=== PATIENT | male | born 1930 | race Hispanic/Latino ===

== ENCOUNTER 2017-09-28 17:12 | Observation (INO) | payer MEDICARE, OTHER ==
--- NOTE | 2017-09-28 17:57 | ED PDOC ---
Arrival/HPI - General Time Seen by Provider: 09/28/17 17:25 Historian: Patient, Spouse - History of Present Illness Narrative History of Present Illness (Text): 09/28/17 17:54 87 y.o. male whose PMHx included HTN, afib, (on eliquis), seizures, PE with IVC filter who presents to the ED with complaint of right hand pain x [employer]. Patient stated his gait is unstable as baseline. He said he was walking towards a restaurant, and he felt his right leg "gave out" which caused him to fall. Patient fell on his right knee, and he was able to put his right hand down. Patient denies dizziness, syncope, sob, cp, dysarthria, diplopia, dysphagia, weaknes, paresthesias, fever, leg swelling, calf pain, n/v, or seizures. Denies head injury, or neck pain. Time/Duration: Prior to Arrival Context: Other (parking lot, local restaurant) Past Medical History - Provider Review Nursing Documentation Reviewed: Yes - Tetanus Immunization Tetanus Immunization: Unknown - Past Medical History Past Medical History: Non-Contributing - Cardiac Hx Hypertension: Yes - Pulmonary Hx Respiratory Disorders: Yes (pe/amy filter 2006) - Neurological Hx Seizures: Yes - HEENT Hx HEENT Disorder: Yes (wears eyeglasses) - Renal Hx Renal Disorder: No - Endocrine/Metabolic Hx Endocrine Disorders: No - Hematological/Oncological Hx Blood Disorders: Yes Hx Anemia: Yes - Integumentary Hx Dermatological Disorder: Yes (adult rosacea) Other/Comment: left ankle ulcer surrounded by red skin 2cm x 2cm - Musculoskeletal/Rheumatological Hx Arthritis: Yes - Gastrointestinal Hx Gastrointestinal Disorders: Yes (hx gi bleed) - Genitourinary/Gynecological Hx Reproductive Disorders: Yes - Psychiatric Hx Anxiety: Yes Hx Depression: Yes Hx Emotional Abuse: No Hx Physical Abuse: No Hx Substance Use: No - Surgical History Hx Cardiac Catheterization: Yes (05/20/14) Hx Cholecystectomy: Yes (2006) - Anesthesia Hx Anesthesia: Yes Hx Anesthesia Reactions: No Hx Malignant Hyperthermia: No - Suicidal Assessment Feels Threatened In Home Enviroment: No Family/Social History - Physician Review Nursing Documentation Reviewed: Yes Family/Social History: Other (noncontributory) Smoking Status: Never Smoked Hx Alcohol Use: No Hx Substance Use: No Hx Substance Use Treatment: No Allergies/Home Meds Allergies/Adverse Reactions: Allergies errythromycin Adverse Reaction (Uncoded 09/17/15 17:20) SWELLING Home Medications: Home Meds Medication Instructions Recorded Confirmed Ezetimibe [Zetia] 10 mg PO QPM 03/10/14 09/28/17 OXcarbazepine [Trileptal] 300 mg PO BID 03/10/14 09/28/17 Phenobarbital [PHENobarbital Tab] 32.4 mg PO HS 03/10/14 09/28/17 Tamsulosin [Flomax] 0.4 mg PO QPM 03/21/14 09/28/17 Atorvastatin [Lipitor] 20 mg PO DAILY 05/23/14 09/28/17 Amlodipine Besylate [Norvasc] 10 mg PO DAILY 09/17/15 09/28/17 Atenolol [Tenormin] 25 mg PO DAILY 09/17/15 09/28/17 Loratadine [Non-Drowsy Allergy] 10 mg PO DAILY 09/17/15 09/28/17 Multivitamin [Multi-Day Vitamins] 1 each PO DAILY 09/17/15 09/28/17 Review of Systems - Review of Systems Constitutional: Normal. absent: Fatigue, Weight Change, Fevers, Night Sweats Eyes: Normal ENT: Normal Respiratory: Normal Cardiovascular: Normal Gastrointestinal: Normal Genitourinary Male: Normal Musculoskeletal: Other (right anterior knee abrasion. right hand pain) Skin: Normal Neurological: Normal Endocrine: Normal Hemo/Lymphatic: Normal Psychiatric: Normal Physical Exam Vital Signs Temp Pulse Resp BP Pulse Ox 09/28/17 22:53 97.7 F 84 18 135/64 98 09/28/17 17:39 98.2 F 90 18 140/79 97 Temperature: Afebrile Blood Pressure: Normal Pulse: Regular Respiratory Rate: Normal Appearance: Positive for: Well-Appearing, Non-Toxic, Comfortable Pain Distress: None Mental Status: Positive for: Alert and Oriented X 3 - Systems Exam Head: Present: Atraumatic, Normocephalic, Other (no raccoon sign. no joseph sign) Pupils: Present: PERRL, Other (no hyphema) Extroacular Muscles: Present: EOMI. No: Entrapment Conjunctiva: Present: Normal Ears: Present: Normal, NORMAL TM, Normal Canal, Other (no hemotympanum). No: Erythema Mouth: Present: Moist Mucous Membranes Pharnyx: Present: Normal. No: ERYTHEMA, EXUDATE, TONSILS ENLARGED Neck: Present: Normal Range of Motion, Trachea Midline. No: Meningeal Signs, MIDLINE TENDERNESS, Paraspinal Tenderness, Lymphadenopathy Respiratory/Chest: Present: Clear to Auscultation, Good Air Exchange. No: Respiratory Distress, Accessory Muscle Use Cardiovascular: Present: Regular Rate and Rhythm, Normal S1, S2. No: Murmurs Abdomen: No: Tenderness, Distention, Peritoneal Signs Back: Present: Normal Inspection. No: CVA Tenderness Upper Extremity: Present: Normal Inspection, Normal ROM. No: Cyanosis, Edema Lower Extremity: Present: Normal Inspection, Normal ROM. No: Edema Neurological: Present: GCS=15, CN II-XII Intact, Speech Normal, Motor Func Grossly Intact, Normal Sensory Function, Memory Normal, Other (Normal speech. Patient had morb difficulty ambulating thn his baseline). No: Gait Normal ( unstable gait) Skin: Present: Warm, Dry, Normal Color. No: Rashes Psychiatric: Present: Alert, Oriented x 3, Normal Insight, Normal Concentration Medical Decision Making ED Course and Treatment: 09/28/17 18:00 Patient stated he had a mechanical fall. He denies sob, cp, dizziness, cms, diplopia, or dysarthria. NIH scale was zero at this time on revaluation,. 09/28/17 21:[address] Chapa regarding patient hx of fall. Patient has worsening of gait. He recommended Dr. Rhodes, cardiology, Dr. Coto, neurology consult. Pending CT head result. Dr. Chapa recommended Aspirin 81 mg PO, if CT brain is negative for bleed. 09/28/17 21:24 On revaluation. Patient feels well. NIH score still zero. Patient admits having unsteady gait for near 2 years. Patient is able to move all extremity. However, patient was not able to walk steady at this time in this ED visit. I recommended patient to stay in the hospital for observation. Patient agreed with the plan Re-evaluation Time: 21:16 Reassessment Condition: Re-examined, Improving,but remains with symptoms - Lab Interpretations Lab Results: Lab Results 09/28/17 20:12: Urine Color Yellow, Urine Appearance Clear, Urine pH 6.0, Ur Specific [place] 1.010, Urine Protein Negative, Urine Glucose (UA) Negative, Urine Ketones Negative, Urine Blood Negative, Urine Nitrate Negative, Urine Bilirubin Negative, Urine Urobilinogen 0.2, Ur Leukocyte Esterase Negative - RAD Interpretation Narrative RAD Interpretations (Text): 09/28/17 19:11 PROCEDURE: Right Knee Radiographs. HISTORY: pain s/p fall COMPARISON: None. FINDINGS: BONES: No acute fracture or destructive bony lesion identified. Diffuse osteopenia suggests osteoporosis. JOINTS: Degenerative changes are comprised of joint space narrowing and cortical sclerosis in all 3 compartments. Vascular calcifications are identified in the mid posterior thigh JOINT EFFUSION: None. OTHER FINDINGS: None. IMPRESSION: Degenerative joint disease. No acute fracture or dislocation appreciated. Diffuse osteopenia suggests osteoporosis. 09/29/17 00:43 FINDINGS: Brain: There are periventricular foci of hypodensity, likely representing small vessel ischemic disease in a patient this age. The acuity of the white matter disease is indeterminate. The white-chicas differentiation is preserved demonstrating no acute territorial type infarct. A few tiny dilated perivascular spaces are identified below the left basal ganglia. No acute intracranial hemorrhage is seen. There is a left parafalcine calcification or calcified meningioma measuring 0.9 x 0.5 cm. Midline shift: There is no midline shift. Ventricles: There is mild to moderate prominence of the ventricles and sulci, compatible with atrophy. Bones/joints: The calvarium demonstrates no evidence for a depressed fracture. Soft tissues: No acute abnormality. Vasculature: There is atherosclerotic calcification of the intracranial internal carotid arteries and distal vertebral arteries. Sinuses: Mucous retention cysts or polyps are visualized within the bilateral maxillary sinuses. There is opacification of a few left ethmoid air cells, with a small additional mucous retention cyst or polyp. Page 1 of 2 GABRIELLE SNOW | Final Radiology Report Mastoid air cells: No mastoid effusion. IMPRESSION: 1. No acute intracranial hemorrhage or acute territorial type infarct. 2. There are periventricular foci of hypodensity, likely representing small vessel ischemic disease in a patient this age. 3. Mild to moderate atrophy. 4. Paranasal sinus disease is noted above. 5. Additional CT findings described above Radiology Orders: 09/28/17 17:57 ANKLE RIGHT 3 VIEWS ROUTINE [RAD] Stat Hip Right [HIP MIN 2V W/ PELVIS RT] [RAD] Stat KNEE W PATELLA RIGHT 3 VIEW [RAD] Stat 09/28/17 20:08 HEAD W/O CONTRAST [CT] Stat 09/28/17 20:10 HAND RIGHT 3 VIEWS [RAD] Stat 09/28/17 20:15 CHEST ONE VIEW [RAD] Stat NIHSS Scale ([place]) Time Performed: 18:00 - How Severe is the Stoke Baseline Level of Consciousness: 0=Alert LOC to Questions: 0=Both comments correct LOC to commands: 0=Obeys both correctly Best Gaze: 0=Normal Visual: 0=No visual loss Facial: 0=Normal Motor Arm - Left: 0=No drift Motor Arm - Right: 0=No drift Motor Leg - Left: 0=No drift Motor Leg - Right: 0=No drift Limb Ataxia: 0=Absent Sensory: 0=Normal Best Language: 0=No aphasia Dysarthia: 0=Normal articulation Extinction & Inattention (Neglect): 0=Normal, no object Score: 0 Risk Level: No Stroke Risk Disposition/Present on Arrival - Present on Arrival Any Indicators Present on Arrival: No History of DVT/PE: No History of Uncontrolled Diabetes: No Urinary Catheter: No History Surgical Site Infection Following: None - Disposition Have Diagnosis and Disposition been Completed?: Yes Diagnosis: Unsteady gait, Near syncope Disposition: HOSPITALIZED Disposition Time: 21:27 Patient Plan: Admission Patient Problems: Current Active Problems Problem Status Onset Unsteady gait Acute Near syncope Acute Condition: STABLE
--- NOTE | 2017-09-28 19:03 | RAD ---
PROCEDURE: Right Knee Radiographs. HISTORY: pain s/p fall COMPARISON: None. FINDINGS: BONES: No acute fracture or destructive bony lesion identified. Diffuse osteopenia suggests osteoporosis. JOINTS: Degenerative changes are comprised of joint space narrowing and cortical sclerosis in all 3 compartments. Vascular calcifications are identified in the mid posterior thigh JOINT EFFUSION: None. OTHER FINDINGS: None. IMPRESSION: Degenerative joint disease. No acute fracture or dislocation appreciated. Diffuse osteopenia suggests osteoporosis.
[2017-09-28 20:17] LABS: URINE BILIRUBIN NEGATIVE (NEGATIVE); URINE BLOOD NEGATIVE (NEGATIVE); URINE GLUCOSE (UA) NEGATIVE (NEGATIVE); URINE LEUKOCYTE ESTERASE NEGATIVE Leu/uL (NEGATIVE); URINE PROTEIN NEGATIVE mg/dL (<30 mg/dL); URINE UROBILINOGEN 0.2 E.U./dL (<1 E.U./dL)
[2017-09-28 20:22] LABS: URINE APPEARANCE CLEAR (CLEAR); URINE COLOR YELLOW (YELLOW)
[2017-09-28 21:41] LABS: BASO # 0.01 K/mm3 (0.0-2.0); BASO % 0.1 % (0.0-3.0); EOS # 0.2 (0.0-0.7); EOS % 2.6 % (1.5-5.0); GRAN # 5.51 (1.4-6.5); HEMOGLOBIN 14.6 g/dL (14.0-18.0); LYMPH % 23.4 % (22.0-35.0); MEAN CELL VOLUME 89.7 fl (80.0-105.0); MEAN CORPUSCULAR HEMOGLOBIN 30.7 pg (25.0-35.0); MEAN CORPUSCULAR HGB CONC 34.3 g/dl (31.0-37.0); MEAN PLATELET VOLUME 9.6 fl (7.0-11.0); MONO # 0.8 (0.1-0.6); MONO % 8.9 % (1.0-6.0); RBC 4.75 10^6/uL (3.5-6.1); RED CELL DISTRIBUTION WIDTH 14.6 % (11.5-14.5); WHITE BLOOD COUNT 8.5 10^3/ul (4.5-11.0)
[2017-09-28 21:50] LABS: INR 1.25 (0.93-1.08); PARTIAL THROMBOPLASTIN TIME 33.3 Seconds (25.1-36.5); PROTHROMBIN TIME 14.3 SECONDS (9.4-12.5)
[2017-09-28 21:55] LABS: ALB/GLOB RATIO 1.4 (1.1-1.8); ALBUMIN 4.5 g/dL (3.0-4.8); ALT/SGPT 52 U/L (7-56); AST/SGOT 62 U/L (17-59); BLOOD UREA NITROGEN 26 mg/dL (7-21); CALCIUM 9.6 mg/dL (8.4-10.5); GFR AFRICAN-AMERICAN > 60; GFR NON-AFRICAN AMERICAN > 60
[2017-09-28 22:07] LABS: TROPONIN I 0.03 ng/mL
--- NOTE | 2017-09-29 00:33 | CT ---
EXAM: CT Head Without Intravenous Contrast EXAM DATE/TIME: 09/28/2017 8:08 PM CLINICAL HISTORY: The patient age is 87 years old and is male; Signs and symptoms; Dizziness; Patient HX: HX seizures in past according to pt Facility exam id and description: Ct heads head w/o contrast TECHNIQUE: Axial computed tomography images of the head/brain without intravenous contrast. All CT scans at this facility use one or more dose reduction techniques, viz.: automated exposure control; ma/kV adjustment per patient size (including targeted exams where dose is matched to indication; i.e. head); or iterative reconstruction technique. Coronal and sagittal reformatted images were created and reviewed. COMPARISON: No relevant prior studies available. FINDINGS: Brain: There are periventricular foci of hypodensity, likely representing small vessel ischemic disease in a patient this age. The acuity of the white matter disease is indeterminate. The white-chicas differentiation is preserved demonstrating no acute territorial type infarct. A few tiny dilated perivascular spaces are identified below the left basal ganglia. No acute intracranial hemorrhage is seen. There is a left parafalcine calcification or calcified meningioma measuring 0.9 x 0.5 cm. Midline shift: There is no midline shift. Ventricles: There is mild to moderate prominence of the ventricles and sulci, compatible with atrophy. Bones/joints: The calvarium demonstrates no evidence for a depressed fracture. Soft tissues: No acute abnormality. Vasculature: There is atherosclerotic calcification of the intracranial internal carotid arteries and distal vertebral arteries. Sinuses: Mucous retention cysts or polyps are visualized within the bilateral maxillary sinuses. There is opacification of a few left ethmoid air cells, with a small additional mucous retention cyst or polyp. Mastoid air cells: No mastoid effusion. IMPRESSION: 1. No acute intracranial hemorrhage or acute territorial type infarct. 2. There are periventricular foci of hypodensity, likely representing small vessel ischemic disease in a patient this age. 3. Mild to moderate atrophy. 4. Paranasal sinus disease is noted above. 5. Additional CT findings described above.
[2017-09-29 02:12] VITALS: BMI 23.6
[2017-09-29] MEDS: Multivitamin Therapeutic Tab PO SCH (09:35)
--- NOTE | 2017-09-29 10:04 | RAD ---
PROCEDURE: CHEST RADIOGRAPH, 1 VIEW HISTORY: admission COMPARISON: 09/17/2015 FINDINGS: LUNGS: Clear. PLEURA: No pneumothorax or pleural fluid seen. CARDIOVASCULAR: Mild cardiomegaly-similar.Atherosclerotic vascular calcifications present. . OSSEOUS STRUCTURES: Bilateral shoulder arthrosis. Thoracic spondylosis. VISUALIZED UPPER ABDOMEN: Normal. OTHER FINDINGS: None. IMPRESSION: No interval pathology noted.
--- NOTE | 2017-09-29 10:06 | RAD ---
PROCEDURE: Right Hand Radiographs. HISTORY: pain COMPARISON: None. FINDINGS: BONES: . No fracture. JOINTS: osteoarthritic changes. SOFT TISSUES: Normal. OTHER FINDINGS: Chondrocalcinosis triangular fibrocartilage complex area IMPRESSION: No fracture or lytic lesion. 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 Chondrocalcinosis
[2017-09-29] MEDS: Potassium Chloride 20 mEq ER Tab PO SCH (11:41)
--- NOTE | 2017-09-29 12:21 | CON ---
DATE: 09/29/2017 HISTORY OF PRESENT ILLNESS: This is an 87-year-old white male with past medical history of hypertension, atrial fibrillation, seizure and with IVC filter. The patient was walking on the sidewalk, lost the control on the right leg and fell and landed on the right hand. Did not hit his head. No loss of consciousness. Called to evaluate the patient. Past medical history of seizure, hypertension, AFib, IV filter and at bedside. REVIEW OF THE SYSTEMS: Ten-point review of systems was negative except fall. PHYSICAL EXAMINATION: VITAL SIGNS: Blood pressure 140/79. HEENT: Normocephalic, atraumatic. NECK: Supple. NEUROLOGIC: Awake, orientated to self and place. No aphasia. Cranial nerves II through XII were tested. Pupils reactive. EOM intact. Visual field full. No facial asymmetry. Tongue midline. No tracheal deviation. Spontaneous movement of the extremities noted. Deep tendon reflexes 1+. Both plantars downgoing. Sensory appears intact. Cerebellar gait normal. IMPRESSION: Status post fall, possibly secondary to uneven surface and also gait difficulty. CAT scan of the head was done, which was reported negative. MRI of the lumbosacral spine was ordered and physical therapy for gait training. Continue present management. We will follow up. Kolby Coto MD
--- NOTE | 2017-09-29 13:04 | RAD ---
PROCEDURE: Right Ankle Radiographs. HISTORY: pain s/p fall COMPARISON: None FINDINGS: BONES: Normal. No fracture. JOINTS: Normal. No osteoarthritis. Ankle mortise maintained. Talar dome intact SOFT TISSUES: Normal. OTHER FINDINGS: None. IMPRESSION: Normal right ankle radiographs.
--- NOTE | 2017-09-29 13:05 | RAD ---
PROCEDURE: Right Hip and pelvis Radiographs. HISTORY: pain s/p fall COMPARISON: None. FINDINGS: BONES: Normal. No fracture. JOINTS: Normal. SOFT TISSUES: Normal. OTHER FINDINGS: None. IMPRESSION: Normal radiographs of right hip.
--- NOTE | 2017-09-29 16:06 | CARD ---
APPROVED REPORT EXAM: Two-dimensional and M-mode echocardiogram with Doppler and color Doppler. INDICATION Atrial Fibrillation Cardiac Disease: CAD 2D DIMENSIONS Left Atrium (2D)4.7 (1.6-4.0cm)IVSd1.1 (0.7-1.1cm) LVDd4.0 (3.9-5.9cm)LVOT Diameter1.9 (1.8-2.4cm) PWd1.1 (0.7-1.1cm)LVDs2.6 (2.5-4.0cm) FS (%) 35.2 %LVEF (%)65.2 (>50%) M-Mode DIMENSIONS Aortic Root3.20 (2.2-3.7cm)Aortic Cusp Exc.1.10 (1.5-2.0cm) Aortic Valve AoV Peak Wmzkfoda171.0cm/sAoV VTI47.1cmAO Peak GR.31mmHg LVOT Peak Shtdazbf78.6cm/sLVOT VTI22.90cmAO Mean GR.14mmHg YINKA (VMAX)1.09dr3YNR (VTI)1.38cm2 Mitral Valve MV E Iowdxryh158.0cm/sMV A Bdeldsqf87.8cm/sE/A ratio2.1 TDI Lateral E' Peak V9.07cm/sMedial E' Peak V7.70cm/sE/Lateral E'12.5 E/Medial E'14.7 Pulmonary Valve PV Peak Gihjggaa179.0cm/sPV Peak Grad.5mmHg Tricuspid Valve TR Peak Wnnzbfjo889in/sRAP [id number] Peak Gr.58mmHg [id number] LEFT VENTRICLE The left ventricle is normal size. There is normal left ventricular wall thickness. The left ventricular function is normal.EF-65% There is normal LV segmental wall motion. Transmitral Doppler flow pattern is Grade II-pseudonormal filling dynamics. No left ventricle thrombus noted on this study. There is no ventricular septal defect visualized. There is no left ventricular aneurysm. There is no mass noted in the left ventricle. RIGHT VENTRICLE The right ventricle is normal size. There is normal right ventricular wall thickness. The right ventricular systolic function is normal. ATRIA The left atrium is mildly dilated. The right atrium size is normal. The interatrial septum is intact with no evidence for an atrial septal defect. AORTIC VALVE The aortic valve is calcified and displays decreased opening. The aortic valve is severely sclerotic. There is trace aortic regurgitation. There is mild to moderate valvular aortic stenosis. There is no aortic valvular vegetation. MITRAL VALVE The mitral valve is thickened but opens well. Mitral annular calcification is moderate. Mitral regurgitation is mild to moderate. There is no mitral valve stenosis. There is no evidence of mitral valve prolapse. TRICUSPID VALVE The tricuspid valve leaflets are thickened or calcified, but open well. There is mild to moderate tricuspid regurgitation.RVSP-68 mmof hg There is moderate pulmonary hypertension. There is no tricuspid valve stenosis. There is no tricuspid valve prolapse or vegetation. PULMONIC VALVE The pulmonary valve is normal in structure. There is trace to mild pulmonic valvular regurgitation. There is no pulmonic valvular stenosis. GREAT VESSELS The aortic root is normal in size. The ascending aorta is normal in size. The pulmonary artery is normal. The IVC is normal in size and collapses >50% with inspiration. PERICARDIAL EFFUSION There is no pleural effusion. There is no pericardial effusion. <Conclusion> The left ventricle is normal size. There is normal left ventricular wall thickness. The left ventricular function is normal.EF-65% There is trace aortic regurgitation. There is mild to moderate valvular aortic stenosis. Mitral regurgitation is mild to moderate. There is mild to moderate tricuspid regurgitation.RVSP-68 mmof hg There is moderate pulmonary hypertension. The IVC is normal in size and collapses >50% with inspiration. There is no pericardial effusion. No Vegetation or thrombus noted
--- NOTE | 2017-09-29 16:23 | MRI ---
PROCEDURE: MR LUMBAR SPINE WITHOUT CONTRAST HISTORY: gait difficulty COMPARISON: None available. TECHNIQUE: Multiecho multiplanar sequences were performed through the lumbar spine without the use of intravenous contrast. FINDINGS: Normal lumbar lordosis. Vertebral body heights are preserved. Marrow signal unremarkable. Conus medullaris unremarkable at the level of L1 There appears to be a transitional S1 segment with a small disc space between S1 and S2. This counting convention will be followed. T12-L1: No disc herniation, spinal canal stenosis or neural foraminal narrowing. L1-2: No disc herniation, spinal canal stenosis or neural foraminal narrowing. L2-3: No disc herniation, spinal canal stenosis or neural foraminal narrowing. L3-4: Mild disc bulge and ligamentum flavum hypertrophy. Mild central stenosis L4-5: Severe spinal stenosis secondary to disc bulging and severe ligamentum flavum hypertrophy. There is complete obliteration of the normal subarachnoid space L5-S1: Mild disc bulge. Facet arthropathy and severe ligamentum flavum hypertrophy with a severe degree of central canal stenosis OTHER FINDINGS: None. IMPRESSION: Transitional partially lumbarized S1 segment. Severe spinal stenosis at L4-5 and L5-S1
--- NOTE | 2017-09-29 17:03 | CARD ---
APPROVED REPORT EKG Measurement Heart [id number] <Conclusion> Normal sinus rhythm Normal ECG
[2017-09-29] MEDS ORDERED: PHENOBARBITAL 32.4 MG PO SCH (22:00)
--- NOTE | 2017-09-29 23:31 | CON ---
DATE: 09/29/2017 CARDIOLOGY CONSULTATION REASON FOR CONSULTATION: Cardiac evaluation, history of AFib/atrial flutter, coronary artery disease status post stent, admitted after a mechanical fall and unsteady gait. BRIEF CLINICAL HISTORY: This is an 87-year-old male with past medical history significant for coronary artery disease, status post stent 3 years ago; hypertension; atrial fibrillation/flutter, on Eliquis; seizure disorder; PE; IVC filter who presented, was going with and right leg gave out and fell down and bruised in the right hand palm and knee. Denies any chest pain. Denies any shortness of breath. Denies any palpitations. PAST MEDICAL HISTORY: Significant for seizure disorder, hypertension, hyperlipidemia, prostatic enlargement, spasm of the bladder, history of abnormal stress test with cardiac catheterization in 2014 and then subsequently underwent 3 drug-eluting stents to proximal, mid and distal LAD, history of atrial fibrillation, status post KYLAH cardioversion, failed cardioversion, since then the patient is on Eliquis that was in 2014. PAST SURGICAL HISTORY: Significant for cholecystectomy in the past, history of PE and the patient had IVC filter in the past, history of angioplasty on 05/22/2014, 3 stents to proximal, mid and distal LAD stents, history of KYLAH cardioversion in 2014. CURRENT MEDICATIONS: The patient is on Flomax, K-Dur, loratadine, Lasix, atorvastatin, atenolol, Eliquis, amlodipine. REVIEW OF SYSTEMS: As per HPI. PHYSICAL EXAMINATION: VITAL SIGNS: Temperature afebrile, heart rate 60, blood pressure 130/80. HEENT: PERRLA. Extraocular muscles intact. NECK: Supple. No carotid bruit or thyromegaly. CHEST: Clear to auscultation. HEART: S1 and S2, regular. ABDOMEN: Soft. EXTREMITIES: Clubbing and cyanosis negative. LABORATORY DATA: Blood workup as follows: WBC 8.5, hemoglobin 14, hematocrit 42.6, platelet count 157. Chemistry shows sodium 143, potassium 4.2, chloride 102, carbon dioxide 33, anion gap of 26, BUN 16, creatinine 0.9. IMPRESSION: An 87-year-old male with past medical history of unsteady gait; atrial fibrillation, on Eliquis; history of deep venous thrombosis/pulmonary embolism, status post inferior vena cava filter; history of coronary artery disease in 2014, 3 drug-eluting stents in 05/2014, recent stress test shows normal, no ischemia, dated 04/30/2016. Last echo here in [place] on 05/22/2014, at that time the transesophageal echocardiography cardioversion was done, there is [id number]-[id number]-[id number] concentric left ventricle hypertrophy, ejection fraction 65%, borderline hypokinesis of apical inferior wall, aortic valve area by planimetry 0.9 cm2 and 1 cm2 by continuity equation, peak gradient 25 mmHg. Trace aortic regurgitation, no evidence of mitral valve prolapse. Then, the patient had subsequent cardioversion done, but later on, the patient failed and remained on Eliquis for atrial fibrillation, resumed back. The patient admitted at this time with unsteady gait. RECOMMENDATIONS: We will get echo to assess LV function, lipid profile, TSH, hemoglobin A1c. Also, assess the aortic valve area. Reassess the patient's gait. If the gait is unsteady with a high risk of fall, we are going to keep him off the Eliquis, though understand the risk of stroke would be higher, but risk of subdural or intracerebral bleed after the trauma would be higher as well. For now, we will hold gait training and then we will reassess. If the patient's gait is stable, we will resume back Eliquis. We will follow with you. Thank you, , for providing us the opportunity in taking care of the patient Hal Mckeon. Trevor Espinosa MD
[2017-09-30 05:47] VITALS: O2SAT 96
[2017-09-30 06:05] LABS: BASO # 0.02 K/mm3 (0.0-2.0); BASO % 0.3 % (0.0-3.0); EOS # 0.3 (0.0-0.7); EOS % 4.1 % (1.5-5.0); GRAN # 4.2 (1.4-6.5); GRAN % 56.2 % (50.0-68.0); HEMOGLOBIN 14.4 g/dL (14.0-18.0); LYMPH # 2.2 (1.2-3.4); LYMPH % 29.6 % (22.0-35.0); MEAN CELL VOLUME 89.4 fl (80.0-105.0); MEAN CORPUSCULAR HGB CONC 33.6 g/dl (31.0-37.0); MEAN PLATELET VOLUME 9.5 fl (7.0-11.0); MONO # 0.7 (0.1-0.6); MONO % 9.8 % (1.0-6.0); RBC 4.8 10^6/uL (3.5-6.1); RED CELL DISTRIBUTION WIDTH 14.5 % (11.5-14.5); WHITE BLOOD COUNT 7.5 10^3/ul (4.5-11.0)
[2017-09-30 06:24] LABS: INR 1.35 (0.93-1.08); PROTHROMBIN TIME 15.6 SECONDS (9.4-12.5)
[2017-09-30 06:34] LABS: LDL CHOLESTEROL 66 mg/dL (0-129)
[2017-09-30 06:39] LABS: ALB/GLOB RATIO 1.1 (1.1-1.8); ALBUMIN 3.5 g/dL (3.0-4.8); ALT/SGPT 44 U/L (7-56); AST/SGOT 54 U/L (17-59); BLOOD UREA NITROGEN 24 mg/dL (7-21); CALCIUM 9.1 mg/dL (8.4-10.5); GFR AFRICAN-AMERICAN > 60; GFR NON-AFRICAN AMERICAN > 60; HDL CHOLESTEROL 42 mg/dL (29-60)
[2017-09-30] MEDS: Potassium Chloride 20 mEq ER Tab PO SCH (08:10)
[2017-09-30] MEDS ORDERED: Sodium Chloride 0.9% 1,000 ML IV SCH (09:00)
[2017-09-30] MEDS: Multivitamin Therapeutic Tab PO SCH (10:01)
[2017-09-30 11:42] VITALS: BP 125/63; PULSE 69; RESP 18; TEMP 98
--- NOTE | 2017-09-30 15:00 | PN ---
DATE: 09/30/2017 REASON FOR CONSULTATION: Cardiac evaluation, history of atrial fibrillation/flutter; coronary artery disease, status post stent admitted after a mechanical fall, unsteady gait, orthostatic hypotension positive. SUBJECTIVE: Patient denies any chest pain, shortness of breath, or any palpitation. OBJECTIVE: GENERAL: Not in apparent distress. VITAL SIGNS: Temperature afebrile, heart rate 63, blood pressure 137/72, but on lying 132/69, sitting 95/56, standing 101/70. LABORATORY DATA: Blood workup: WBC 7.2, hemoglobin 14.1, hematocrit 42.9, platelet count 141. Chemistry showed sodium 144, potassium 3.9, chloride 104, carbon dioxide 31, anion gap of 30, BUN 24, creatinine 0.9. TSH 0.75. Total protein 6.7, albumin 3.5, albumin globulin ratio 1.1. IMPRESSION: Status post mechanical fall; coronary artery disease; orthostatic hypotension; unsteady gait; history of pulmonary embolism, status post inferior vena cava filter; history of angioplasty on 05/22/2014, 3 stents to proximal left anterior descending, mid and distal left anterior descending artery; status post transesophageal echocardiography cardioversion in 2014, failed; atrial fibrillation/flutter, on Eliquis. RECOMMENDATIONS: For the patient's orthostatic hypotension, we will start IV fluid. Get physical therapy for gait training and evaluation. Patient had echocardiography done yesterday that revealed ejection fraction 65%, [id number] valvular aortic stenosis, gvay-pa-cqrzgebr tricuspid regurgitation, moderate pulmonary hypertension, RV systolic pressure of 68. Once the patient becomes euvolemic he will okay to be discharged. Followup stress test as outpatient in three to four weeks. We will discuss with the patient and . Thank you Dr. Chapa for providing us the opportunity in taking care of the patient, Hal Mckeon. Trevor Espinosa MD
--- NOTE | 2017-09-30 18:15 | PN ---
DATE: 09/30/2017 SUBJECTIVE: An 87-year-old white male with past medical history of hypertension, atrial fibrillation and that he was walking on the sidewalk, fell and hit his right hand and feeling better, ambulating in the hallway with physical therapist. MRI of lumbosacral spine came shows severe stenosis L4-L5 and possibly that is the reason for his difficulty in ambulation, gait problem. PHYSICAL EXAMINATION: NEUROLOGIC: Awake, orientated to self and place. No aphasia. Cranial nerves II through XII were tested. Pupils reactive. Spontaneous movement of the extremities noted. Deep tendon reflexes 1+. Both plantars downgoing. Sensory appears intact. Cerebellar gait normal. IMPRESSION: Status post fall, uneven surface and MRI of the lumbar spine shows severe stenosis, L4-L5 and continue physical therapy. We will follow up. Kolby Coto MD
--- NOTE | 2017-09-30 20:19 | HP ---
DATE OF EXAM: 09/29/2017 MAIN REASON FOR ADMISSION: Near syncope, fall with right knee trauma. HISTORY OF PRESENT ILLNESS: This is an 87-year-old male with history of coronary artery disease, stents; aortic stenosis in the hlgt-[id number] range; has history of chronic atrial fibrillation, on Eliquis. He has been walking, he felt weak, suddenly fell, hit his right knee and his right hand. He did suffer pain in his right knee, otherwise no other problems, came to the Emergency Room. He felt also a kind of unsteady gait, cannot walk, and came to the ER for evaluation. He denies chest pain, short of breath, fever, chills, nausea, or vomiting. He does have compliance with his medicine, he takes all his medicines on a regular basis. ALLERGIES: ERYTHROMYCIN. FAMILY HISTORY: Noncontributory. MEDICATIONS AT HOME: He takes Claritin 10 once a day, Lasix 40 once a day, Zetia 10 mg once a day, Lipitor 20 once a day, multivitamins, atenolol 25 mg once a day, Eliquis 5 mg b.i.d., Norvasc 10 mg once a day, Flomax 0.4 mg p.o. daily, K-Dur 20 mEq once a day, phenobarbital 32.4 mg p.o. at bedtime, and Trileptal 300 mg twice a day. PAST MEDICAL HISTORY: As I mentioned, coronary artery disease, stent placement; aortic valve disease, AI, and aortic stenosis, mild to moderate. The patient also has a history of leg edema, resolved, stable on Lasix. History of seizure disorders, did not happen for more than 10 years, still followed up biweekly and he is maintained on phenobarbital and Trileptal. History of hypertension, hypercholesterolemia, and prostate enlargement. REVIEW OF SYSTEMS: As in the present illness, he does have some arthritis, neck pain, C-spine osteoarthritis, osteophyte complex. Has also prostate enlargement with frequent urination, edema is legs, difficulty and gait disorder, has been offered a walker at the [facility]. No chest pain, no respiratory distress, and no focal weakness. PHYSICAL EXAMINATION: VITAL SIGNS: On 09/29/2017, temperature 98.6, heart rate 62, blood pressure 110/58, respirations 20, sat 93% on room air. HEAD AND NECK: Normal. No JVD, no thyromegaly. CHEST: Clear bilaterally. CARDIAC: First sound and second sound normal. . ABDOMEN: Soft, nontender. EXTREMITIES: No edema. NEUROLOGICAL: The patient is alert, awake, and oriented x3. He moves all extremities. LABORATORY STUDIES: The patient has white count 8.5, hemoglobin 14.5, hematocrit is 42.6, platelets 157. Chemistry: Sodium 147, potassium 4.2, chloride 102, bicarb 33, BUN 26, creatinine 0.9. Liver function test is normal except an AST is 62. The patient has troponin of 0.03. His urinalysis is negative. His PT, PTT are within normal range. 1.25, slightly elevated. X-rays of the body was done including hip, pelvis, knee, wrist, ankle, and hand and a chest x-ray, all are negative. The patient also had an echocardiogram, which shows [id number] AI and dmtm-[id number] aortic stenosis and moderate pulmonary hypertension and moderate TR. Otherwise, good LV function. Also, had an MRI, which is negative, being ordered and done by Neurology. IMPRESSION AND PLAN: Near syncope, status post fall with unstable gait and weakness of lower extremity. We will admit the patient for observation. Neuro consultation with Dr. Ctoo, will follow up on the patient and Cardiology consult with Dr. Espinosa. We will admit the patient, resume medicine, put him in telemetry and monitor his cardiac rhythm, cardiac enzymes, and follow up recommendations of both Cardiology and Neurology. Resume his medications and follow up in the next day. We will also consider physical therapy and gait stability and advise also should use a walker while he is walking. Hank Chapa MD
--- NOTE | 2017-10-02 06:56 | DS ---
HISTORY OF PRESENT ILLNESS: An 87-year-old male, status post fall, seen by Cardiology and Neurology. Patient was cleared for discharge. He has knee pain and abrasions. Patient was seen in emergency room, evaluated, admitted for observation. During observation, he had no new complaint, very mild pain in the right knee, otherwise stable. Physical Therapy has seen the patient also and he was doing okay walking. Patient was advised to use the walker, as recommended by [facility]. Patient has no chest pain, no short of breath. He was stable. No arrhythmia, seen by Cardiology. Echo was done, has good LV function. He has moderate aortic stenosis, otherwise stable. No nausea. No vomiting. No diarrhea. Hemodynamically stable. Blood pressure is stable. No cough. No fever. Patient was seen, evaluated. PHYSICAL EXAMINATION: VITAL SIGNS: On discharge, temperature 98, heart rate 69, blood pressure 125/63, respirations 18. HEAD AND NECK: Normal. No JVD. No thyromegaly. CHEST: Clear bilaterally. CARDIAC: First sound and second sound normal. Systolic ejection murmur on the aortic area, 3/6. ABDOMEN: Soft, nontender. EXTREMITIES: No edema. NEUROLOGIC: Normal. LABORATORY DATA: White count 7.5, hemoglobin 14.4, hematocrit 42.9, platelets 141. Chemistry: Sodium 144, potassium 3.9, chloride 104, bicarbonate 31, BUN 24, creatinine 0.9. Liver function test is normal. AST, ALT and alk phos is normal. Patient's albumin, globulin, triglycerides were very good. Cholesterol including total 135, LDL 66, HDL 42. Patient also had a TSH, which was normal at 3.73. DIAGNOSTIC DATA: While he was in the hospital, he had multiple x-rays, which were negative for fractures. Chest x-ray, no active disease. Hand and CT of the head was negative. Knee x-rays was negative. X-ray of pelvis and hip was negative. Patient was seen by Neurology, Dr. Kolby Coto, and by Cardiology, Dr. Espinosa, and Physical Therapy and was cleared for discharge. DISCHARGE DIAGNOSES: 1. Unsteady gait. 2. Status post fall, etiology multifactorial. 3. 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 4. Paroxysmal atrial fibrillation. Continue Eliquis 5 mg b.i.d. 5. Hypertension. 6. Hypercholesterolemia. 7. Seizure disorder. PLAN: Continue current therapy. Hank Chapa MD
== END 2017-09-30 14:32 | disposition home or self-care (01) ==
LOC: ED 17:12 → ERH 21:20 → 2RNO 09-29 00:59
PROVIDERS: ADMIT Internal Medicine; ATTEND Internal Medicine
DX: I95.1 Orthostatic hypotension (principal); M48.061 Spinal stenosis, lumbar region without neurogenic claudication; R26.81 Unsteadiness on feet; R53.1 Weakness; E78.00 Pure hypercholesterolemia, unspecified; E78.5 Hyperlipidemia, unspecified; I10 Essential (primary) hypertension; I25.10 Atherosclerotic heart disease of native coronary artery without angina pectoris; G40.909 Epilepsy, unspecified, not intractable, without status epilepticus; I48.2 Chronic atrial fibrillation; N40.0 Benign prostatic hyperplasia without lower urinary tract symptoms; I08.2 Rheumatic disorders of both aortic and tricuspid valves; M19.90 Unspecified osteoarthritis, unspecified site; N32.89 Other specified disorders of bladder; Z79.01 Long term (current) use of anticoagulants; Z86.718 Personal history of other venous thrombosis and embolism; Z95.5 Presence of coronary angioplasty implant and graft; Z86.711 Personal history of pulmonary embolism

== ENCOUNTER 2018-05-11 09:31 | Outpatient (CLI) | payer MEDICARE, OTHER | END 2018-05-11 09:32 | disposition home or self-care (01) | LOC: LAB 09:31 ==

== ENCOUNTER 2018-06-02 12:39 | Outpatient (CLI) | payer MEDICARE, OTHER | END 2018-06-02 12:40 | disposition home or self-care (01) | LOC: RAD 12:40 | DX: R60.9 Edema, unspecified (principal) ==